=== PATIENT | male | born 1950 | race Caucasian/White ===

== ENCOUNTER 2018-04-06 08:30 | Inpatient (IN) | payer MEDICARE, OTHER ==
[~2018-04-06] VITALS: Ht 185.4 cm; Wt 113.6 kg
--- NOTE | ~2018-04-06 | HEMODYNAMI ---
PATIENT:JUDI HAINES MEDICAL RECORD: [id number] : 50 LOCATION:[facility] D.2129 ADMISSION DATE: 04/06/18 Generatedon:04/10/201816:41 Patient name: JUDI HAINES Patient #: [id number] SSN: D OB: 1950 Date of study: 04/10/2018 Page: Of Hemodynamic Procedure Report Patient Data Patient Demographics Procedure consent was obtained First Name: JUDI Gender: Male Last Name: ZAKI : 1950 Middle Initial: F Age: 67 year(s) Patient #: [id number] Race: Unknown Additional ID: [id number] Contact details Address: [place] [place] [address] State: [place] City: [place] Zip code: [address] Admission Admission Data Admission Date: 04/06/2018 Admission Time: 11:44 Room #: D.2129 Procedure Procedure Types Cath Procedure Peripheral Cath Diagnostic Procedure Miscellaneous Procedure Description Procedure Date Procedure Date: 04/10/2018 Procedure Start Time: 16:24 Procedure Staff Name Function Shirin Sharma MD Performing Physician Braxton Laughlin RT Scrub Braxton Laughlin RT Monitor Shanta Piedra RN Nurse Procedure Data Cath Procedure Fluoroscopy Diagnostic fluoroscopy Total fluoroscopy Time: 0.3 time: 0.3 min min Diagnostic fluoroscopy Total fluoroscopy dose: 7 dose: 7 mGy mGy Hemodynamics Rest Pre Cath Intra NCS Post Cath Procedure Log Time Note 16:02:49 PICC 16:02:52 Time tracking: Regular hours (M-F 7:00 - 5:00) 16:02:54 Shanta Piedra RN sent for patient. Start room use. 16:03:05 Patient received from Med II to IR Alert and oriented. Tansferred to table in Supine position. 16:03:07 Signed procedure consent form obtained from patient. 16:03:09 Pre-procedure instructions explained to patient. 16:03:11 Use device set PICC 16:03:13 Bag Decanter () opened to sterile field. 16:03:14 Sterile Angiographic Pack opened to sterile field. 16:03:14 SHIELD Sorbaview ([id number]) opened to sterile field. 16:03:24 Pre-op teaching completed and patient verbalized understanding. 16:23:19 Right Arm area was prepped with chlora-prep and draped in sterile fashion 16:23:21 --------ALL STOP TIME OUT------ 16:23:29 Sedation plan: Local Anesthetic Medication:Lidocaine 16:23:39 Procedure started. 16:23:39 Full Disclosure recording started 16:24:01 Local anesthetic to right arm with Lidocaine 1% by Shirin Sharma MD.INITIAL ACCESS ONLY 16:36:45 Procedure ended.(Physican Out) 16:37:08 Fluoroscopy time 00.30 minutes. 16:37:11 Fluoroscopy dose: 7 mGy 16:37:11 Flurop Dose total: 7 16:37:13 Sharps counted by scrub and verified by R.N. 16:37:18 Post right arm:stable 16:41:03 Post procedure instruction explained to patient.Patient verbalizes understanding. 16:41:13 Procedure and supply charges have been captured, reviewed, submitted and are correct. 16:41:17 Report given to [facility]. 16:41:23 Patient transfered to [facility] with Wheelchair. Device Usage Item Name Manufacture Quantity Catalog Hospital Part Current Minimal Lot# / Number Charge Number Stock Stock Serial# Code Bag Decanter Microtek 1 [id number] () [employer] Sterile Cardinal 1 [id number] Angiographic Health Pack SHIELD Centurion 1 [id number] Sorbaview ([id number]) Signature Audit Williams Stage Time Signature Unsigned Intra-Procedure 04/10/2018 Braxton 4:41:53 PM [place] RT (R) (CV) Signatures Monitor : Braxton Signature : [place] RT Date : Time : [address] [place] [address]
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
--- NOTE | ~2018-04-06 | EC ---
PATIENT:JUDI HAINES DATE OF SERVICE: 04/06/18 SEX: M MEDICAL RECORD: [id number] DATE OF : 50 LOCATION:D.M2 D.212 AGE OF PATIENT: 67 ADMISSION DATE: 04/06/18 REFERRING PHYSICIAN: INTERPRETING PHYSICIAN: MARINO OVERTON MD ECHOCARDIOGRAM REPORT ECHO CHARGES 4 ECHO COMPLETE Date: 04/08 CLINICAL DIAGNOSIS: CHF,AFIB ECHOCARDIOGRAPHIC MEASUREMENTS (adult normal given) AC root (d.<3.7cm) 3.9 cm LV Septum d (<1.2 cm> 1.4 cm Valve Excursion 1.7 cm LV Septum (systole) 1.6 cm Left Atria (s.<4.0cm> 5.1 cm LVPW d(<1.2cm) 1.9 cm RV (d.<2.3cm) 5.5 cm LVPW (sytole) 2.0 cm LV diastole(<5.6CM) 4.5 cm MV E-F(>70mm/sec) cm LV systole 3.2 cm LVOT Diameter 2.0 cm MV exc.(>10mm) 1.9 cm Est.ejection fraction (50-75%) % DOPPLER: LVIT cm/sec A cm/sec E cm/sec LA cm/sec RVSP 55 mmHg LVOT 90 cm/sec AOP1/2T m/s Asc. Ao 134 cm/sec RVOT 85 cm/sec RA cm/sec PA 132 cm/sec AV Gradient Peak 7.23 mmHg AV Mean 4.63 mmHg AV Area 2.2 cm MV Gradient Peak 8.93 mmHg MV Mean 3.26 mmHg MV Area cm COMMENTS: Medical Record Assistant: 2 SOO JANE Cement Mason Apprentice: 4 Dr. Overton TAPE# PACS Pericardial Effusion N DATE OF SERVICE: PROCEDURE: Transthoracic echocardiogram. FINDINGS: 1. Echo quality is good. 2. LV function appears to be preserved. Ejection fraction is 55%. There are no obvious regional wall motion abnormalities. The patient is in atrial fibrillation. 3. Left atrium is severely dilated at 5.1 cm. ECHOCARDIOGRAM REPORT [id number] JUDI HAINES 4. There is moderate mitral regurgitation. 5. Tricuspid valve has moderate to severe tricuspid regurgitation, RVSP of 55 mmHg. 6. The right ventricle is moderate to severely dilated. 7. There is left ventricular hypertrophy. 8. Pericardium is normal. CONCLUSIONS: The patient has evidence of hypertensive heart disease. The patient is in AFib with RVR. There is at least moderate mitral regurgitation and evidence of pulmonary hypertension and dilatation of the right-sided structures. TRANSINT:[id number] Voice Confirmation ID: [id number] DOCUMENT ID: [id number] MARINO OVERTON MD at 1029 CC: [id number] DICTATION DATE: 04/09/18815 PRESCHOOL TEACHER'S ASSISTANT: 04/09/18 1233 ADM IN [id number] [place] [address]
[2018-04-06 09:19] LABS: HEMATOCRIT 53.3 % (42.0-54.0); HEMOGLOBIN 17.9 g/dL (13.5-17.5); MCH 36.5 pg (26.0-34.0); MCHC 33.6 g/dL (31.0-37.0); MCV 108.8 fL (80.0-100.0); MEAN PLATELET VOLUME 11.3 fL (7.4-10.4); PLATELET COUNT 138 10x3/uL (130-400); RDW 14.3 % (11.5-14.5); WBC 7.5 10x3/uL (4.8-10.8)
[2018-04-06 09:43] LABS: ALBUMIN 3.6 g/dL (3.4-5.0); ALKALINE PHOSPHATASE 97 U/L (46-116); CALC OSMOLALITY 297 mosm/kg (275-300); CALCIUM 9.5 mg/dL (8.5-10.1); CHLORIDE - SERUM 99 mmol/L (98-107); CREATININE - SERUM 1.9 mg/dL (0.6-1.3); GLUCOSE 201 mg/dL (74-106); POTASSIUM - SERUM 5.4 mmol/L (3.5-5.1); PROTEIN - SERUM 8.6 g/dL (6.4-8.2); SODIUM 138 mmol/L (136-145); UREA NITROGEN 57 mg/dL (7-18); eGFR NON AFRICAN AMERICAN 38 mL/min (90-120)
[2018-04-06 09:44] LABS: ALT (SGPT) 1191 U/L (10-68)
[2018-04-06 09:47] LABS: LYMPHOCYTES 28 % (15-50); MONOCYTES 12 % (2-11); NEUTROPHILS 53 % (40-80); PLATELET ESTIMATE DECREASED
[2018-04-06 09:50] LABS: CKMB 6.3 U/L (0.0-3.6); CREATINE KINASE 135 UL (21-232); PRO BNP 7448 pg/mL (0-125); TROPONIN-I 0.058 ng/mL (0.000-0.060)
[2018-04-06 10:24] LABS: MAGNESIUM - SERUM 2.5 mg/dL (1.8-2.4)
[2018-04-06 12:04] LABS: UDS - AMPHET NEGATIVE QUAL (NEGATIVE); UDS - BARB NEGATIVE QUAL (NEGATIVE); UDS - BENZO NEGATIVE QUAL (NEGATIVE); UDS - COCAINE NEGATIVE QUAL (NEGATIVE); UDS - OPIATE NEGATIVE QUAL (NEGATIVE); UDS - PCP NEGATIVE QUAL (NEGATIVE); UDS - THC NEGATIVE QUAL (NEGATIVE)
[2018-04-06] MEDS ORDERED: REVATIO20 MG PO (16:18)
[2018-04-06] MEDS ORDERED: AMITRIPTYLINE H50 MG PO (16:19)
[2018-04-06 16:29] VITALS: BP 114/65; BMI 31.7
[2018-04-06 22:00] VITALS: BP 167/96
[2018-04-07] VITALS (8 sets, daily range): BP systolic 104–183; BP diastolic 66–89; Ht 185.4 cm; Wt 113.6 kg
[2018-04-07 06:06] LABS: BASOPHILS 0.9 % (0-2); EOSINOPHILS 0 % (0-7); HEMATOCRIT 52.2 % (42.0-54.0); HEMOGLOBIN 17.1 g/dL (13.5-17.5); IMMATURE GRANULOCYTES 2.1 % (0-5); LYMPHOCYTES 13.2 % (15-50); MCH 36.1 pg (26.0-34.0); MCHC 32.8 g/dL (31.0-37.0); MCV 110.1 fL (80.0-100.0); MEAN PLATELET VOLUME 10.9 fL (7.4-10.4); MONOCYTES 3.5 % (2-11); NEUTROPHILS 80.3 % (40-80); PLATELET COUNT 138 10x3/uL (130-400); RBC 4.74 10x6/uL (4.20-6.10); RDW 14.6 % (11.5-14.5); WBC 6.6 10x3/uL (4.8-10.8)
[2018-04-07 06:49] LABS: ALBUMIN 3.1 g/dL (3.4-5.0); BILIRUBIN - TOTAL 1.3 mg/dL (0.2-1.3); CALCIUM 8.5 mg/dL (8.5-10.1); CARBON DIOXIDE 29.7 mmol/L (21.0-32.0); CHOL - HDL RATIO 7.3 ratio (2.3-4.9); LDL-HDL RATIO 5.4 ratio (1.5-3.5); MAGNESIUM - SERUM 2.4 mg/dL (1.8-2.4); PRE-ALBUMIN 7.4 mg/dL (18.0-35.7); PROTEIN - SERUM 7.7 g/dL (6.4-8.2)
[2018-04-07 07:00] LABS: ANION GAP 14.6 mmol/L (8-16); CREATININE - SERUM 1.4 mg/dL (0.6-1.3); POTASSIUM - SERUM 4.3 mmol/L (3.5-5.1)
[2018-04-07 07:20] LABS: INR 1.36 (0.85-1.17); PROTIME 16.3 SECONDS (11.6-15.0)
[2018-04-08] VITALS (7 sets, daily range): BP systolic 105–145; BP diastolic 54–86
[2018-04-08 05:53] LABS: BASOPHILS 0.5 % (0-2); EOSINOPHILS 0 % (0-7); HEMATOCRIT 47.3 % (42.0-54.0); HEMOGLOBIN 15.4 g/dL (13.5-17.5); IMMATURE GRANULOCYTES 1.2 % (0-5); LYMPHOCYTES 11.1 % (15-50); MCH 35.3 pg (26.0-34.0); MCHC 32.6 g/dL (31.0-37.0); MCV 108.5 fL (80.0-100.0); MEAN PLATELET VOLUME 10.6 fL (7.4-10.4); MONOCYTES 7.7 % (2-11); NEUTROPHILS 79.5 % (40-80); PLATELET COUNT 125 10x3/uL (130-400); RBC 4.36 10x6/uL (4.20-6.10); RDW 14.6 % (11.5-14.5); WBC 11.6 10x3/uL (4.8-10.8)
[2018-04-08 06:24] LABS: ALBUMIN 2.8 g/dL (3.4-5.0); ANION GAP 9.4 mmol/L (8-16); BILIRUBIN - TOTAL 0.8 mg/dL (0.2-1.3); CALCIUM 8.6 mg/dL (8.5-10.1); CARBON DIOXIDE 31.5 mmol/L (21.0-32.0); CREATININE - SERUM 1.1 mg/dL (0.6-1.3); MAGNESIUM - SERUM 2.3 mg/dL (1.8-2.4); POTASSIUM - SERUM 3.9 mmol/L (3.5-5.1); PROTEIN - SERUM 6.7 g/dL (6.4-8.2)
[2018-04-08 09:18] LABS: FOLATE (FOLIC ACID) - SERUM >20.0 ng/mL (>3.0)
[2018-04-08 09:49] LABS: T4 THYROXIN - FREE 0.97 ng/dL (0.76-1.46); THYROID STIMULATING HORMONE 0.26 uIU/mL (0.36-3.74)
[2018-04-08 11:19] LABS: HEPATITIS C ANTIBODY <0.1 (0.0-0.9)
[2018-04-08 12:17] LABS: HELICOBACTER PYLORI IGM AB <1.0 units (0.0-8.9)
[2018-04-09 04:19] VITALS: BP 128/84
[2018-04-09 04:55] LABS: BASOPHILS 0.1 % (0-2); EOSINOPHILS 0 % (0-7); HEMATOCRIT 48.2 % (42.0-54.0); HEMOGLOBIN 15.3 g/dL (13.5-17.5); IMMATURE GRANULOCYTES 1.1 % (0-5); MCH 35.3 pg (26.0-34.0); MCHC 31.7 g/dL (31.0-37.0); MEAN PLATELET VOLUME 10.6 fL (7.4-10.4); NEUTROPHILS 84.8 % (40-80); PLATELET COUNT 120 10x3/uL (130-400); RBC 4.34 10x6/uL (4.20-6.10); RDW 15.1 % (11.5-14.5); WBC 9.2 10x3/uL (4.8-10.8)
[2018-04-09 04:58] LABS: INR 1.35 (0.85-1.17); PROTIME 16.2 SECONDS (11.6-15.0)
[2018-04-09 05:06] LABS: MCV 111.1 fL (80.0-100.0)
[2018-04-09 05:20] LABS: ALBUMIN 2.7 g/dL (3.4-5.0); ALKALINE PHOSPHATASE 77 U/L (46-116); ALT (SGPT) 835 U/L (10-68); CALC OSMOLALITY 308 mosm/kg (275-300); CALCIUM 8.9 mg/dL (8.5-10.1); CARBON DIOXIDE 35.1 mmol/L (21.0-32.0); CHLORIDE - SERUM 109 mmol/L (98-107); GLUCOSE 289 mg/dL (74-106); MAGNESIUM - SERUM 2.3 mg/dL (1.8-2.4); PHOSPHOROUS 2.3 mg/dL (2.5-4.9); PROTEIN - SERUM 6.4 g/dL (6.4-8.2); SODIUM 146 mmol/L (136-145); UREA NITROGEN 33 mg/dL (7-18); eGFR NON AFRICAN AMERICAN 79 mL/min (90-120)
[2018-04-09 05:21] LABS: POTASSIUM - SERUM 4.7 mmol/L (3.5-5.1)
[2018-04-09 08:04] VITALS: BP 137/78
[2018-04-09 11:43] VITALS: BP 137/89
[2018-04-09 15:26] LABS: MITOCHONDRIAL ANTIBODY 9.3 Units (0.0-20.0); SMOOTH MUSCLE ABS (ACTIN) 13 Units (0-19)
[2018-04-09 16:32] VITALS: BP 141/80
[2018-04-09 20:00] VITALS: BP 127/82
[2018-04-10 04:00] VITALS: BP 155/85
[2018-04-10 04:26] LABS: BASOPHILS 0.1 % (0-2); EOSINOPHILS 0 % (0-7); HEMATOCRIT 50.7 % (42.0-54.0); HEMOGLOBIN 16.2 g/dL (13.5-17.5); IMMATURE GRANULOCYTES 1.3 % (0-5); LYMPHOCYTES 6.9 % (15-50); MCH 35.6 pg (26.0-34.0); MCV 111.4 fL (80.0-100.0); MEAN PLATELET VOLUME 10.7 fL (7.4-10.4); MONOCYTES 3.8 % (2-11); NEUTROPHILS 87.9 % (40-80); PLATELET COUNT 114 10x3/uL (130-400); RBC 4.55 10x6/uL (4.20-6.10); RDW 15.2 % (11.5-14.5); WBC 9.3 10x3/uL (4.8-10.8)
[2018-04-10 04:42] LABS: INR 1.38 (0.85-1.17); PROTIME 16.5 SECONDS (11.6-15.0)
[2018-04-10 04:45] LABS: ALBUMIN 2.9 g/dL (3.4-5.0); ALKALINE PHOSPHATASE 75 U/L (46-116); ALT (SGPT) 755 U/L (10-68); BILIRUBIN - TOTAL 0.85 mg/dL (0.2-1.3); CALC OSMOLALITY 308 mosm/kg (275-300); CALCIUM 9.4 mg/dL (8.5-10.1); CARBON DIOXIDE 37.9 mmol/L (21.0-32.0); CHLORIDE - SERUM 107 mmol/L (98-107); GLUCOSE 301 mg/dL (74-106); MAGNESIUM - SERUM 2.4 mg/dL (1.8-2.4); POTASSIUM - SERUM 4.4 mmol/L (3.5-5.1); PROTEIN - SERUM 6.8 g/dL (6.4-8.2); SODIUM 146 mmol/L (136-145); UREA NITROGEN 31 mg/dL (7-18); eGFR NON AFRICAN AMERICAN 79 mL/min (90-120)
[2018-04-10 08:25] VITALS: BP 136/75
[2018-04-10 11:26] VITALS: BP 139/88
[2018-04-10 16:00] VITALS: BP 139/88
[2018-04-10 20:00] VITALS: BP 145/72
[2018-04-11] VITALS: BP 128/78
[2018-04-11 04:00] VITALS: BP 128/75
[2018-04-11 05:27] LABS: BASOPHILS 0.1 % (0-2); EOSINOPHILS 0 % (0-7); HEMATOCRIT 49.2 % (42.0-54.0); HEMOGLOBIN 15.9 g/dL (13.5-17.5); IMMATURE GRANULOCYTES 1.1 % (0-5); LYMPHOCYTES 6.1 % (15-50); MCH 35.2 pg (26.0-34.0); MCHC 32.3 g/dL (31.0-37.0); MEAN PLATELET VOLUME 10.7 fL (7.4-10.4); MONOCYTES 3.2 % (2-11); NEUTROPHILS 89.5 % (40-80); PLATELET COUNT 105 10x3/uL (130-400); RBC 4.52 10x6/uL (4.20-6.10); RDW 14.7 % (11.5-14.5); WBC 9.2 10x3/uL (4.8-10.8)
[2018-04-11 05:39] LABS: MCV 108.8 fL (80.0-100.0)
[2018-04-11 05:44] LABS: ALBUMIN 2.7 g/dL (3.4-5.0); ALKALINE PHOSPHATASE 67 U/L (46-116); CALCIUM 8.6 mg/dL (8.5-10.1); CARBON DIOXIDE 34.9 mmol/L (21.0-32.0); CHLORIDE - SERUM 110 mmol/L (98-107); INR 1.39 (0.85-1.17); MAGNESIUM - SERUM 2.2 mg/dL (1.8-2.4); POTASSIUM - SERUM 4.6 mmol/L (3.5-5.1); PROTEIN - SERUM 6.2 g/dL (6.4-8.2); PROTIME 16.5 SECONDS (11.6-15.0); SODIUM 148 mmol/L (136-145); UREA NITROGEN 31 mg/dL (7-18)
[2018-04-11 05:46] LABS: ALT (SGPT) 540 U/L (10-68); CALC OSMOLALITY 306 mosm/kg (275-300); CREATININE - SERUM 0.7 mg/dL (0.6-1.3); GLUCOSE 199 mg/dL (74-106); eGFR NON AFRICAN AMERICAN > 90 mL/min (90-120)
[2018-04-11 08:38] VITALS: BP 133/64
[2018-04-11 16:43] VITALS: BP 126/63
[2018-04-11 20:00] VITALS: BP 144/79
[2018-04-12] VITALS: BP 129/73
[2018-04-12 04:00] VITALS: BP 129/81
[2018-04-12 05:40] LABS: BASOPHILS 0 % (0-2); EOSINOPHILS 0 % (0-7); HEMATOCRIT 48.1 % (42.0-54.0); HEMOGLOBIN 16.1 g/dL (13.5-17.5); IMMATURE GRANULOCYTES 0.6 % (0-5); LYMPHOCYTES 6.1 % (15-50); MCH 35.5 pg (26.0-34.0); MCHC 33.5 g/dL (31.0-37.0); MEAN PLATELET VOLUME 11.1 fL (7.4-10.4); MONOCYTES 3.1 % (2-11); NEUTROPHILS 90.2 % (40-80); PLATELET COUNT 104 10x3/uL (130-400); RBC 4.54 10x6/uL (4.20-6.10); RDW 14.6 % (11.5-14.5)
[2018-04-12 05:41] LABS: MCV 105.9 fL (80.0-100.0)
[2018-04-12 05:45] LABS: INR 1.35 (0.85-1.17); PROTIME 16.2 SECONDS (11.6-15.0)
[2018-04-12 05:50] LABS: ALBUMIN 2.7 g/dL (3.4-5.0); ALKALINE PHOSPHATASE 66 U/L (46-116); ALT (SGPT) 414 U/L (10-68); BILIRUBIN - TOTAL 0.96 mg/dL (0.2-1.3); CALC OSMOLALITY 293 mosm/kg (275-300); CALCIUM 8.5 mg/dL (8.5-10.1); CARBON DIOXIDE 37.3 mmol/L (21.0-32.0); CHLORIDE - SERUM 103 mmol/L (98-107); CREATININE - SERUM 0.7 mg/dL (0.6-1.3); GLUCOSE 226 mg/dL (74-106); POTASSIUM - SERUM 4.2 mmol/L (3.5-5.1); PROTEIN - SERUM 6.1 g/dL (6.4-8.2); SODIUM 141 mmol/L (136-145); UREA NITROGEN 28 mg/dL (7-18); eGFR NON AFRICAN AMERICAN > 90 mL/min (90-120)
[2018-04-12 08:04] VITALS: BP 134/74
[2018-04-12 11:38] VITALS: BP 143/85
[2018-04-12 15:58] VITALS: BP 128/68
[2018-04-12 20:00] VITALS: BP 140/88
[2018-04-13] VITALS: BP 146/80
[2018-04-13 04:00] VITALS: BP 126/68
[2018-04-13 05:51] LABS: BASOPHILS 0.1 % (0-2); EOSINOPHILS 0 % (0-7); HEMATOCRIT 47.1 % (42.0-54.0); HEMOGLOBIN 15.8 g/dL (13.5-17.5); IMMATURE GRANULOCYTES 0.4 % (0-5); LYMPHOCYTES 5.3 % (15-50); MCH 35.1 pg (26.0-34.0); MCHC 33.5 g/dL (31.0-37.0); MCV 104.7 fL (80.0-100.0); MEAN PLATELET VOLUME 10.2 fL (7.4-10.4); MONOCYTES 6.1 % (2-11); NEUTROPHILS 88.1 % (40-80); PLATELET COUNT 88 10x3/uL (130-400); RDW 14.1 % (11.5-14.5); WBC 9.5 10x3/uL (4.8-10.8)
[2018-04-13 06:02] LABS: ALBUMIN 2.6 g/dL (3.4-5.0); ALKALINE PHOSPHATASE 62 U/L (46-116); ALT (SGPT) 302 U/L (10-68); CALC OSMOLALITY 293 mosm/kg (275-300); CALCIUM 8.2 mg/dL (8.5-10.1); CARBON DIOXIDE 36.8 mmol/L (21.0-32.0); CHLORIDE - SERUM 103 mmol/L (98-107); CREATININE - SERUM 0.8 mg/dL (0.6-1.3); GLUCOSE 254 mg/dL (74-106); POTASSIUM - SERUM 4.3 mmol/L (3.5-5.1); PROTEIN - SERUM 5.5 g/dL (6.4-8.2); SODIUM 141 mmol/L (136-145); UREA NITROGEN 24 mg/dL (7-18); eGFR NON AFRICAN AMERICAN > 90 mL/min (90-120)
[2018-04-13 06:06] LABS: INR 1.31 (0.85-1.17); PROTIME 15.8 SECONDS (11.6-15.0)
[2018-04-13 08:42] VITALS: BP 118/70
[2018-04-13] MEDS ORDERED: XIFAXAN550 MG PO (11:37)
[2018-04-13] MEDS ORDERED: XOPENEX 0.0.63 MG/3 INH (11:38)
[2018-04-13] MEDS ORDERED: NICODERM C1 PATCH .3 TRANSDERM (11:38)
[2018-04-13] MEDS ORDERED: ATROVENT 0.02%2.5 ML UPD ×2 (11:38→14:11)
[2018-04-13] MEDS ORDERED: LEVAQUIN500 MG PO (11:38)
[2018-04-13] MEDS ORDERED: LANOXIN125 MCG PO (11:40)
[2018-04-13] MEDS ORDERED: COUMADIN3 MG PO ×2 (11:40→13:31)
[2018-04-13] MEDS ORDERED: CARDIZEM CD180 MG PO (11:40)
[2018-04-13] MEDS ORDERED: PROTONIX40 MG PO (11:40)
[2018-04-13] MEDS ORDERED: THIAMINE HCL50 MG PO (11:41)
[2018-04-13] MEDS ORDERED: THERAGRAN M [BK1 TAB PO (11:41)
[2018-04-13] MEDS ORDERED: PREDNISONE10 MG PO (11:42)
[2018-04-13 12:15] VITALS: BP 132/82
[2018-04-13] MEDS ORDERED: BROVANA15 MCG/2 M INH (14:11)
== END 2018-04-13 16:07 | disposition home health service (06) | DRG 441 ==
LOC: D.ER 08:30 → D.M2 11:44 → D.EDHOLD 11:44 → D.M2 13:24
PROVIDERS: Emergency Medicine; Family Medicine; Internal Medicine Gastroenterology; Internal Medicine Nephrology; Internal Medicine Pulmonary Disease; Radiology Vascular & Interventional Radiology
PROC: 02HV33Z Insertion of Infusion Device into Superior Vena Cava, Percutaneous Approach (ICD-10-PCS; 2018-04-10)
PROC: B548ZZA Ultrasonography of Superior Vena Cava, Guidance (ICD-10-PCS; 2018-04-10)
PROC: B5181ZA Fluoroscopy of Superior Vena Cava using Low Osmolar Contrast, Guidance (ICD-10-PCS; principal; 2018-04-10 16:00)
DX: K72.90 Hepatic failure, unspecified without coma (principal); I50.31 Acute diastolic (congestive) heart failure; J96.22 Acute and chronic respiratory failure with hypercapnia; J96.21 Acute and chronic respiratory failure with hypoxia; J18.9 Pneumonia, unspecified organism; F10.231 Alcohol dependence with withdrawal delirium; F17.203 Nicotine dependence unspecified, with withdrawal; J44.1 Chronic obstructive pulmonary disease with (acute) exacerbation; N17.9 Acute kidney failure, unspecified; K70.10 Alcoholic hepatitis without ascites; I48.91 Unspecified atrial fibrillation; G47.33 Obstructive sleep apnea (adult) (pediatric); Z91.19 Patient's noncompliance with other medical treatment and regimen; E11.22 Type 2 diabetes mellitus with diabetic chronic kidney disease; N18.9 Chronic kidney disease, unspecified; I08.1 Rheumatic disorders of both mitral and tricuspid valves